=== PATIENT | female | born 1960 | race Caucasian/White ===

== ENCOUNTER → 2020-01-20 | Outpatient (CLI) | payer BC | END | disposition home or self-care (01) | LOC: LABWHC1 11:41 | PROVIDERS: ATTEND Orthopaedic Surgery | DX: Z01.812 Encounter for preprocedural laboratory examination (principal) | CPT/HCPCS: 87070 ==

== ENCOUNTER → 2020-02-10 | Outpatient (CLI) | payer BC ==
[2020-02-10 16:23] LABS: Basophils # (A) 0.2 k/uL (0-0.2); Basophils % (A) 2 %; Eosinophils # (A) 0.2 k/uL (0-0.7); Eosinophils % (A) 3 %; HCT 42.9 % (34.0-46.0); HGB 14.7 gm/dL (11.4-16.0); Lymphocytes # (A) 1.8 k/uL (1.0-4.8); Lymphocytes % (A) 26 %; MCH 29.7 pg (25.0-35.0); MCHC 34.3 g/dL (31.0-37.0); MCV 86.8 fL (80.0-100.0); Mean Platelet Volume 7.2; Monocytes # (A) 0.4 k/uL (0-1.0); Monocytes % (A) 6 %; Neutrophils # (A) 4.4 k/uL (1.3-7.7); Neutrophils % (A) 61 %; Platelet Count 273 k/uL (150-450); RBC 4.94 m/uL (3.80-5.40); WBC 7.2 k/uL (3.8-10.6)
[2020-02-10 16:32] LABS: Potassium 4.2 mmol/L (3.5-5.1)
[2020-02-10 16:39] LABS: INR 0.9 (<1.2); Prothrombin Time 9.4 sec (9.0-12.0)
== END | disposition home or self-care (01) ==
LOC: LABPAT 15:56
PROVIDERS: ATTEND Family Medicine Addiction Medicine
DX: Z01.818 Encounter for other preprocedural examination (principal)
CPT/HCPCS: 36415; 80051; 85025; 85610; 93005

== ENCOUNTER 2020-02-20 06:07 | Day surgery (SDC) | payer BC ==
[2020-02-14 10:27] VITALS: BMI 36.0
--- NOTE | 2020-02-19 09:42 | HP ---
HISTORY AND PHYSICAL REASON FOR ADMISSION: Surgery scheduled 02/20/2020 HISTORY OF PRESENT ILLNESS: Rhona Wayne is a 59-year-old patient seen with symptomatic right knee osteoarthritis. We discussed options for treatment. She elected to proceed with right total knee arthroplasty. Consent regarding the procedure was obtained. PAST MEDICAL HISTORY: Hypertension. SURGICAL HISTORY: Right knee arthroscopy/ACL reconstruction. DAILY MEDICATIONS: Adderall, lisinopril, meloxicam. ALLERGIES: DARVON AND ASPIRIN. SOCIAL HISTORY: She denies current tobacco use. PHYSICAL EVALUATION OF THE RIGHT KNEE: Range of motion is 0-130. There is a mild effusion present. Tenderness medial joint line. Crepitus medial patellofemoral compartments with range of motion. There is pain with patellofemoral compression. Ligaments stable. Hip rotation without pain. Distal neurovascular exam is intact. RADIOGRAPHS: Right knee radiographs reveal severe osteoarthritic changes. IMPRESSION: 1. Right knee osteoarthritis. 2. Hypertension. PLAN: Right total knee arthroplasty. Surgery is 02/20/2020. MMODL / IJN: [id number] /
[~2020-02-20 06:07] MED LIST: ACETAMINOPHEN TAB 500 MG TAB PO PRN; DEXAMETHASONE SOD PHOSPHATE 4 MG/ML 1 ML VIAL IV ONE; LACTATED RINGERS 1,000 ML IV SCH; LIDOCAINE 1% (10MG/ML) FOR IV START INTRADERMA PRN; MELOXICAM 7.5 MG TAB PO PRN; MIDAZOLAM 2 MG/2 ML VIAL IV PRN; ONDANSETRON 4 MG/2 ML VIAL IVP ONE; ROPIVACAINE 246.25 MG, EPINEPHrine 0.5 MG, KETOROLAC 30 MG, cloNIDine HCL/PF 80 MCG, WA... MISCELLANE PRN; TRANEXAMIC ACID 1,000 MG in SODIUM CHLORIDE 0.9% 100 ML IVPB PRN
[2020-02-20] MEDS ORDERED: MIDAZOLAM 2 MG/2 ML VIAL IV ONE (06:58)
[2020-02-20] MEDS ORDERED: SODIUM CHLORIDE 0.9% 100 ML BAG ONE (07:22)
[2020-02-20] MEDS ORDERED: NEOSTIGMINE 1 MG/ML 10 ML VIAL ONE (07:22)
[2020-02-20] MEDS ORDERED: ROCURONIUM 10 MG/ML (10 ML VIAL) IV ONE (07:22)
[2020-02-20] MEDS ORDERED: PROPOFOL 10 MG/ML 20 ML VIAL IV ONE (07:22)
[2020-02-20] MEDS ORDERED: GLYCOPYRROLATE 0.2 MG/ML 2 ML VIAL ONE (07:22)
[2020-02-20] MEDS ORDERED: fentaNYL (PF) 50 MCG/ML 2 ML AMP ONE (07:22)
[2020-02-20] MEDS ORDERED: TRANEXAMIC ACID 1,000 MG/10 ML VIAL ONE (07:22)
[2020-02-20] MEDS ORDERED: KETAMINE 10 MG/ML 20 ML VIAL ONE (07:22)
[2020-02-20] MEDS ORDERED: MIDAZOLAM 2 MG/2 ML VIAL ONE (07:22)
[2020-02-20] MEDS ORDERED: SUCCINYLCHOLINE CHLORIDE 100 MG/5 ML SYR IV ONE (07:22)
[2020-02-20] MEDS ORDERED: HYDROmorphone (PF) 1 MG/ML ONE (07:22)
[2020-02-20] MEDS ORDERED: LIDOCAINE 1% INJ 10MG/ML (20 ML MDV) ONE (07:22)
[2020-02-20] MEDS ORDERED: SCOPOLAMINE 1.5MG/72HR PATCH TRANSDERM ONE (07:23)
[2020-02-20] MEDS ORDERED: ceFAZolin 3,000 MG in SODIUM CHLORIDE 0.9% IRRIGATIO 3,000 ML IRRIGATION ONE (08:00)
[2020-02-20] MEDS ORDERED: LACTATED RINGERS 1,000 ML IV ONE ×2 (08:42→09:18)
[2020-02-20] MEDS ORDERED: ONDANSETRON 4 MG/2 ML VIAL IVP PRN (09:18)
[2020-02-20] MEDS ORDERED: HYDROmorphone 0.2 MG/1 ML SYRINGE IVP PRN (09:18)
[2020-02-20] MEDS ORDERED: HYDROmorphone 0.5 MG/0.5 ML SYRINGE IVP PRN (09:18)
[2020-02-20] MEDS ORDERED: NALOXONE 0.4 MG/ML 1 ML VIAL IV PRN (09:18)
[2020-02-20] MEDS ORDERED: HYDROmorphone 1 MG/ML 1 ML SYRINGE IVP PRN (09:18)
[2020-02-20] MEDS ORDERED: HYDROcodone/APAP 5-325MG 1 EACH TAB PO PRN ×2 (09:18)
--- NOTE | 2020-02-20 09:18 | P.OP ---
Date of Procedure: 02/20/20 Preoperative Diagnosis: Right knee osteoarthritis Postoperative Diagnosis: Right knee osteoarthritis Procedure(s) Performed: Right total knee arthroplasty Implants: 1. Depuy attune size 6 narrow right cruciate retaining cemented femur 2. Depuy attune size 6 fixed-bearing cemented tibial baseplate 3. Depuy attune size 6 fixed-bearing cruciate retaining 7 mm polyethylene tibial insert 4. Depuy attune 35 mm all polyethylene cemented patella Anesthesia: GETA, regional (Adductor canal catheter), local Surgeon: Jarrell Holder [employer]illing [employer] Professional #1: Ji Sofia Estimated Blood Loss (ml): 45 Pathology: other (Bone) Condition: stable Disposition: PACU Indications for Procedure: 59-year-old patient seen with symptomatic right knee osteoarthritis. After treatment options were discussed, she elected to proceed with total knee arthroplasty. Operative Findings: See description of procedure Description of Procedure: Patient was taken to the operative suite after having an adductor canal catheter placed by the department of anesthesia. Patient underwent a general anesthetic by the department of anesthesia. Patient was given preoperative IV intake antibiotics and TXA. A well-padded tourniquet was placed about the right lower extremity. The lower extremity was then prepped and draped in the normal sterile orthopedic fashion. The extremity was elevated, a tourniquet was insufflated to 300. A standard anterior incision was made sharply through skin. Dissection was taken down through the subcutaneous soft tissues down to the extensor mechanism. A medial arthrotomy was performed, patella was everted and knee was flexed. There was advanced osteoarthritis noted. I introduced my distal intramedullary femoral drill. I then introduced the distal femoral cut ting jig. Gallito JONES secured the cutting jig with 2 pins. I held retractors in position while Gallito JONES performed the distal femoral resection through the guide area we now removed her distal femoral cutting guide. We now placed our 4-in-1 femoral cutting block and positioned and it was secured with 2 pins by Gallito JONES while I held the block in position. The distal femoral finishing was now completed. A proximal tibial cutting guide was positioned. I held the guide in the appropriate position with both hands well Gallito JONES inserted stabilizing pins into the guide. Proximal tibial cut was made. We now placed a trial femoral component into position, along with an appropriate size tibial tray and insert. We now took the knee through range of motion and had full extension good flexion and good overall soft tissue balance noted. The patella was everted and stabilized with 2 towel clips held by Gallito JONES while I performed a flush with patellar quad tendon utilizing a fresh sawblade. We templated the patella, appropriate drill holes were made. An appropriate trial patella was positioned, knee was taken through full range of motion with the patella tracking very nicely. The trial patella was removed. Drill holes were made through the femoral component. All trial components were removed after marking off the appropriate rotation of the tibia. Retractors were now positioned along the proximal tibia. An appropriate keel punch was made with the appropriate size tibial guide by myself on Gallito JONES assisted by holding retractors. At this point appropriate size implants were chosen and opened. The joint was irrigated copiously with pulse lavage mechanical irrigation. The posterior capsule was infiltrated with local analgesic. The wound was irrigated with pulse lavage mechanical irrigation. We mixed antibiotic methylmethacrylate. We placed the knee into flexion. We placed multiple retractors assisted by Gallito JONES to expose the proximal tibia. Once the methyl methacrylate was ready, the tibial component was cemented into place removing any excess methylmethacrylate form by both myself and Gallito JONES. The femoral component was cemented into place removing the removing any excess methylmethacrylate performed by both myself and Gallito JONES. We then inserted the appropriate size polyethylene tibial insert. We made sure that it was locked into position. We took the knee into full extension, and then back in a flexion making sure we had removed any excess methylmethacrylate. The patellar component was then cemented down and secured with clamp. Excess methylmethacrylate removed. We kept the knee in full extension, patellar clamp in position until methylmethacrylate had hardened. Once it had hardened the patellar clamp was removed. The knee was taken through full range of motion. The patella tracked nicely. There was good soft tissue balancing. The tourniquet was now released. Additional hemostasis was achieved via electrocautery. A second gram of TXA was given. The wound again was irrigated with pulse lavage mechanical irrigation. The superficial soft tissues were infiltrated local analgesic. The extensor mechanism was repaired with Vicryl. We checked the repair with range of motion and it was stable. The subcutaneous soft tissues were repaired with Vicryl in layers. The skin was approximated with pernio/Dermabond. Sterile dressings were applied followed by loose web roll and Ganesh bandage. The patient was transferred to a bed, and taken to recovery in stable and satisfactory condition. Gallito JONES assisted with this complex procedure.
[2020-02-20] MEDS ORDERED: ROPIVACAINE 0.2%-NS ON-Q PUMP 1,090 MG, EMPTY PAIN BALL 1 EACH MISCELLANE PRN (09:41)
[2020-02-20] MEDS: HYDROmorphone 0.5 MG/0.5 ML SYRINGE IVP PRN ×4 (09:47→10:28)
[2020-02-20 09:54] VITALS: TEMP 97.8
--- NOTE | 2020-02-20 09:55 | P.ANPRN ---
Procedure Note - Anesthesia - Nerve Block Performed Right Adductor Canal Infusion Time Out Performed: Yes Date of Procedure: 02/17/20 Procedure Start Time: 06:58 Procedure Stop Time: 07:10 Location of Patient: PreOp Indication: Acute Post-Operative Pain, Requested by Surgeon Sedation Type: Sedate with meaningful contact maintained Preparation: Sterile Prep, Sterile Dressing Position: Supine Catheter: Indwelling Needle Types: Pajunk Needle Gauge: 21 Ultrasound used to visualize needle placement: Yes Ultrasound used to observe medication spread: Yes Blood Aspirated: No Pain Paresthesia on Injection Noted: No Resistance on Injection: Normal Image Stored and Saved: Yes Events: Uneventful and Well Tolerated (ropi .5% 20cc plus dexamethasone 4mg)
--- NOTE | 2020-02-20 10:15 | XR ---
EXAMINATION TYPE: XR knee limited RT DATE OF EXAM: 02/20/2020 CLINICAL HISTORY: Right knee pain and arthritis status post total knee replacement. TECHNIQUE: Portable AP and crosstable lateral views of the right knee are obtained immediately posto peratively. COMPARISON: Outside right knee x-ray January 20, 2020 FINDINGS: Metallic hardware from total right knee arthroplasty is seen and appears satisfactory in a lignment and position. There is evidence of recent surgery with diffuse subcutaneous gas and soft ti ssue swelling noted. Persistent posterior lateral plate distal femur from prior cruciate ligament rep air with adjacent heterotopic ossification. IMPRESSION: METALLIC HARDWARE FROM TOTAL RIGHT KNEE ARTHROPLASTY IS SATISFACTORY IN ALIGNMENT.
[2020-02-20 14:21] VITALS: BP 105/67; PULSE 89; RESP 18
== END 2020-02-20 14:36 | disposition home health service (06) ==
LOC: OR 06:07
PROVIDERS: ATTEND Orthopaedic Surgery
DX: M17.11 Unilateral primary osteoarthritis, right knee (principal); I10 Essential (primary) hypertension; F90.9 Attention-deficit hyperactivity disorder, unspecified type; Z88.8 Allergy status to other drugs, medicaments and biological substances; Z79.899 Other long term (current) drug therapy; Z98.890 Other specified postprocedural states; Z88.6 Allergy status to analgesic agent
CPT/HCPCS: 97110; 97161; 64448; 76942; 88300; 73560; 27447; C1776; C1713; J2250; J0171; J1100; J2710; J0690 ×2; J2405; J2001; J3010; J1885; J1170 ×2; J2795 ×2; J0330; J2704; J0735

== ENCOUNTER 2020-04-19 07:57 | Observation (INO) | payer BC ==
[2020-04-17 15:01] VITALS: BMI 36.8
--- NOTE | 2020-04-18 20:26 | HP ---
HISTORY AND PHYSICAL DATE OF SURGERY: 04/19/2020 Rhona Wayne is a 59-year-old patient seen with a right knee quadriceps tendon medial retinacular tear. She has a history of previous right total knee arthroplasty. I recommended repair of her quadriceps tendon tear and medial retinacular tear. I reviewed the procedure, risks, complications, benefits and recovery. She was agreeable and consent was obtained. PAST MEDICAL HISTORY: Hypertension, hyperlipidemia. PAST SURGICAL HISTORY: Right knee arthroscopy, right total knee arthroplasty. DAILY MEDICATIONS: Adderall, amitriptyline, lisinopril, meloxicam, hydrocodone. ALLERGIES: DARVON. SOCIAL HISTORY: She denies current tobacco use. PHYSICAL EVALUATION OF THE RIGHT KNEE: She has a well-healed incision. There is a defect along the medial retinaculum distal quadriceps tendon consistent with a tear. She is unable to extend her knee. She has moderate effusion. Her distal neurovascular exam is intact. RADIOGRAPHS: Radiographs of the right knee revealed a stable-appearing total knee arthroplasty with lateral subluxation of patella consistent with medial retinacular tear. IMPRESSION: 1. Right knee quadriceps tendon tear/medial retinacular tear. 2. History of right total knee arthroplasty. 3. Hypertension. PLAN: Open repair, right knee quadriceps tendon and medial retinacular tear. MMODL / IJN: [id number] /
[~2020-04-19 07:57] MED LIST changes: -ACETAMINOPHEN TAB 500 MG TAB PO PRN; -LACTATED RINGERS 1,000 ML IV SCH; -MELOXICAM 7.5 MG TAB PO PRN; -MIDAZOLAM 2 MG/2 ML VIAL IV PRN; -ROPIVACAINE 246.25 MG, EPINEPHrine 0.5 MG, KETOROLAC 30 MG, cloNIDine HCL/PF 80 MCG, WA... MISCELLANE PRN; -TRANEXAMIC ACID 1,000 MG in SODIUM CHLORIDE 0.9% 100 ML IVPB PRN
[2020-04-19] MEDS: LACTATED RINGERS 1,000 ML IV SCH ×3 (08:51→21:40)
[2020-04-19] MEDS: MIDAZOLAM 2 MG/2 ML VIAL IV PRN ×2 (09:01→12:07)
[2020-04-19 09:06] LABS: HCT 40.1 % (34.0-46.0); HGB 13.2 gm/dL (11.4-16.0); MCH 28.6 pg (25.0-35.0); MCV 86.6 fL (80.0-100.0); Mean Platelet Volume 7.2; Platelet Count 264 k/uL (150-450); RBC 4.63 m/uL (3.80-5.40); RDW 13.5 % (11.5-15.5); WBC 6.4 k/uL (3.8-10.6)
[2020-04-19 09:11] LABS: African American GFR (CKD) >90 (>60 ml/min/1.73 sqM); Anion Gap 6 mmol/L; Blood Urea Nitrogen 20 mg/dL (7-17); Calcium 9.5 mg/dL (8.4-10.2); Carbon Dioxide 29 mmol/L (22-30); Chloride 104 mmol/L (98-107); Glucose 107 mg/dL (74-99); Non-African American GFR(CKD) >90 (>60 ml/min/1.73 sqM); Potassium 4.5 mmol/L (3.5-5.1); Sodium 139 mmol/L (137-145)
[2020-04-19] MEDS ORDERED: KETOROLAC 15 MG/ML 1 ML VIAL ONE (09:38)
[2020-04-19] MEDS ORDERED: LIDOCAINE 1% INJ 10MG/ML (20 ML MDV) ONE (09:38)
[2020-04-19] MEDS ORDERED: SUCCINYLCHOLINE CHLORIDE 100 MG/5 ML SYR IV ONE (09:38)
[2020-04-19] MEDS ORDERED: PROPOFOL 10 MG/ML 20 ML VIAL IV ONE (09:38)
[2020-04-19] MEDS ORDERED: fentaNYL (PF) 50 MCG/ML 2 ML AMP ONE (09:38)
[2020-04-19] MEDS ORDERED: DEXAMETHASONE SOD PHOSPHATE 4 MG/ML 1 ML VIAL ONE (09:38)
[2020-04-19] MEDS ORDERED: MIDAZOLAM 2 MG/2 ML VIAL ONE (09:38)
[2020-04-19] MEDS ORDERED: ROPIVACAINE 5 MG/ML 30 ML VIAL ONE (09:38)
[2020-04-19] MEDS ORDERED: HYDROmorphone (PF) 1 MG/ML ONE (09:38)
[2020-04-19] MEDS ORDERED: ceFAZolin 3,000 MG in SODIUM CHLORIDE 0.9% IRRIGATIO 3,000 ML IRRIGATION ONE (10:35)
[2020-04-19] MEDS ORDERED: ONDANSETRON 4 MG/2 ML VIAL IVP PRN (11:07)
[2020-04-19] MEDS ORDERED: HYDROcodone/APAP 5-325MG 1 EACH TAB PO PRN (11:07)
[2020-04-19] MEDS ORDERED: HYDROmorphone 0.2 MG/1 ML SYRINGE IVP PRN (11:07)
[2020-04-19] MEDS ORDERED: HYDROmorphone 0.5 MG/0.5 ML SYRINGE IVP PRN (11:07)
[2020-04-19] MEDS ORDERED: hydrOXYzine pamoate 25 MG CAP PO PRN (11:07)
--- NOTE | 2020-04-19 11:07 | P.OP ---
Date of Procedure: 04/19/20 Preoperative Diagnosis: Right knee quadriceps tendon/medial retinacular tear Postoperative Diagnosis: Right knee quadriceps tendon and medial retinacular tears Procedure(s) Performed: Right knee open quadriceps tendon and medial retinacular repair Anesthesia: GETA, regional (Adductor canal block) Surgeon: Jarrell Holder Estimated Blood Loss (ml): 20 Pathology: none sent Condition: stable Disposition: PACU Indications for Procedure: 59-year-old patient injured her right knee sustaining a clinical quadriceps tendon/medial retinacular tear. I recommended open repair. I discussed the procedure, risks, complications and recovery. Patient was agreeable and consent was obtained. Operative Findings: See description of procedure Description of Procedure: Patient was taken to the operative suite after having undergone and adductor canal block of the department of anesthesia for postoperative pain management. Patient received preoperative IV antibiotics. Patient underwent a general anesthetic by the department of anesthesia. Well-padded tourniquet was placed along the proximal right thigh. The right lower extremity was prepped and draped in the normal sterile orthopedic fashion. The extremity was elevated and the tourniquet was insufflated to 300. An incision was now made over the previous cicatrix. This was aroused subcu soft tissues I encountered a hemarthrosis evacuated. Upon exposing the area we noted a complete tear of the distal quadriceps tendon and complete disruption medial retinaculum. I irrigated the wound out copiously. The components appeared stable and well positioned. I now repaired the quadriceps tendon tear and medial retinacular tears utilizing #5 Ethibond in multiple simple interrupted suture fashion. We had a good stable repair. I took the knee into about 45-50 of flexion with good stability the repair. I irrigated the wound out again copiously. The subcu soft tissues were repaired with 2-0 Vicryl. The skin is proximal skin sebas. Sterile dressings were applied. The tourniquet was released and immediate cap refill the entire extremity noted. Sterile webril and Ganesh bandage were applied. The patient was then transferred to bed and then recovery stable condition.
[2020-04-19] MEDS: fentaNYL (PF) 50 MCG/ML 2 ML AMP IVP ONE ×2 (11:08→11:18)
[2020-04-19] MEDS: MEPERIDINE 50 MG/ML SYRINGE IVP ONE ×2 (11:13→11:26)
[2020-04-19] MEDS ORDERED: LACTATED RINGERS 1,000 ML IV ONE (12:03)
[2020-04-19] MEDS: HYDROmorphone 0.5 MG/0.5 ML SYRINGE IVP PRN ×2 (12:08→12:13)
[2020-04-19] MEDS: HYDROmorphone 1 MG/ML 1 ML SYRINGE IVP PRN ×3 (13:17→22:37)
[2020-04-19] MEDS ORDERED: ACETAMINOPHEN TAB 500 MG TAB PO PRN (14:17)
[2020-04-19] MEDS: HYDROcodone/APAP 5-325MG 1 EACH TAB PO PRN ×2 (14:51→21:23)
--- NOTE | 2020-04-19 19:06 | CONS ---
CONSULTATION REASON FOR CONSULTATION: Advice regarding hypertension and multiple other medical issues, requested by Dr. Holder. HISTORY OF PRESENT ILLNESS: This 59-year-old woman with a past medical history of hypertension, history of DJD, being followed by Dr. Wolfgang Hood in the outpatient setting, was admitted after right knee open quadriceps tendon and medial retinacular repair. The patient has some pain; otherwise, there is no history of any fever, rigor or chills, no history of headache, loss of consciousness or seizures at this time. PAST MEDICAL HISTORY: Hypertension, DJD, history of environmental allergies, history ADD, ADHD, history of nicotine dependence. MEDICATIONS: Medications prior to admission included Zestril, Singulair, Mobic, hydrocodone, Adderall, Zyrtec, Elavil, Tylenol. ALLERGIES: CAMPHOR AND MENTHOL. FAMILY HISTORY: History of skin cancer, intestinal cancer. SOCIAL HISTORY: Occasional alcohol intake. REVIEW OF SYSTEMS: ENT: No diminished hearing. No diminished vision. CARDIOVASCULAR SYSTEM: No angina, palpitations. RESPIRATORY SYSTEM: No cough, hemoptysis. GI: No nausea, vomiting. : No dysuria or retention. NERVOUS SYSTEM: No numbness, weakness. ALLERGY/IMMUNOLOGY: No asthma, hayfever. MUSCULOSKELETAL: As mentioned earlier. HEMATOLOGY/ONCOLOGY: No history of anemia. ENDOCRINE: No history of diabetes, hypothyroidism. CONSTITUTIONAL: As mentioned earlier. DERMATOLOGY: Negative. RHEUMATOLOGY: Negative. PSYCHIATRY: As mentioned earlier. PHYSICAL EXAMINATION: Patient alert and oriented x3. Pulse 85, blood pressure 112/77, respiration 18, temperature 98.6, pulse ox 96% on 2 L. HEENT: Conjunctivae normal. Oral mucosa moist. NECK: No jugular venous distention. No carotid bruit. No lymph node enlargement. CARDIOVASCULAR SYSTEM: S1, S2 muffled. RESPIRATORY SYSTEM: Breath sounds diminished at the bases. No rhonchi. No crackles. ABDOMEN: Soft, non-tender. No mass palpable. LEGS: No edema. No swelling. NERVOUS SYSTEM: Higher functions as mentioned earlier. Moves all 4 limbs. No focal motor or sensory deficit. LYMPHATICS: No lymph node palpable in neck, axillae or groin. SKIN: No ulcer, rash, bleeding. JOINTS: No active deforming arthropathy. LABS: CBC within normal limits. Sodium 139, potassium 4.4. ASSESSMENT: 1. Status post right knee open quadriceps tendon and medial retinacular repair. 2. Mild hypertension. 3. Degenerative joint disease. 4. History of environmental allergies. 5. History of degenerative joint disease and right ACL surgery. 6. History of attention deficit disorder, attention deficit hyperactivity disorder. 7. History of nicotine dependence. 8. Obesity with body mass index of 39.6. 9. FULL CODE. RECOMMENDATIONS AND DISCUSSION: In this 59-year-old woman who presented after surgery, at this time I recommend to continue the current medications, continue symptomatic treatment. I will initiate the home medications. Monitor blood pressure closely. The patient is on lisinopril, which may be held if the blood pressure is low. Otherwise, DVT prophylaxis, incentive spirometry. Will follow the patient closely with you. The patient is on Lovenox. Thank you, Dr. Holder, for letting us participate in the care of this patient. MMODL / IJN: [id number] /
--- NOTE | 2020-04-19 19:34 | P.ANPRN ---
Procedure Note - Anesthesia - Nerve Block Performed Right Adductor Canal Single Time Out Performed: Yes Date of Procedure: 04/19/20 Procedure Start Time: :01 Procedure Stop Time: 09:05 Location of Patient: PreOp Indication: Acute Post-Operative Pain, Requested by Surgeon Sedation Type: Sedate with meaningful contact maintained Preparation: Sterile Prep Position: Supine Needle Types: Pajunk Needle Gauge: 21 Ultrasound used to visualize needle placement: Yes Ultrasound used to observe medication spread: Yes Blood Aspirated: No Pain Paresthesia on Injection Noted: No Resistance on Injection: Normal Image Stored and Saved: Yes Events: Uneventful and Well Tolerated (ropi .5% 20cc plus dexamethasone 4mg)
[2020-04-19] MEDS: LORATADINE 10 MG TAB PO SCH (21:21)
[2020-04-19] MEDS: AMITRIPTYLINE HCL 25 MG TAB PO SCH (21:21)
[2020-04-20] MEDS: HYDROmorphone 1 MG/ML 1 ML SYRINGE IVP PRN ×6 (02:15→21:26)
[2020-04-20] MEDS: LACTATED RINGERS 1,000 ML IV SCH ×5 (06:15→22:24)
[2020-04-20] MEDS: HYDROcodone/APAP 5-325MG 1 EACH TAB PO PRN (06:32)
[2020-04-20] MEDS: MONTELUKAST 10 MG TAB PO SCH (08:36)
[2020-04-20] MEDS: lisinopriL 5 MG TAB PO SCH (08:36)
[2020-04-20] MEDS: ENOXAPARIN 30 MG/0.3 ML SYRINGE SQ SCH (08:38)
[2020-04-20] MEDS ORDERED: HYDROcodone/APAP 7.5-325MG 1 EACH TAB PO PRN (08:50)
[2020-04-20] MEDS: PATIENT'S OWN (Dextroamphetamine/Amphetamine [Adderall] 30 MG Tablet) PO SCH (09:36)
[2020-04-20] MEDS ORDERED: LORazepam 1 MG TAB PO PRN (10:33)
[2020-04-20] MEDS: HYDROcodone/APAP 7.5-325MG 1 EACH TAB PO PRN ×2 (13:10→19:39)
[2020-04-20] MEDS ORDERED: AMPHETAMINE PO SCH (13:30)
[2020-04-20] MEDS ORDERED: DEXTROAMPHETAMINE PO SCH (13:30)
--- NOTE | 2020-04-20 15:57 | PN ---
PROGRESS NOTE DATE OF SERVICE: 04/20/2020 This 59-year-old woman who was admitted after right knee surgery is having significant pain. The patient is reporting high pain tolerance, according to her. No chest pain. No palpitations. No fever. PHYSICAL EXAMINATION: Alert and oriented x3. Pulse is 85, blood pressure 158/90, respiration 14, temperature 97.8, pulse ox 94% on room air. HEENT: Conjunctivae normal. NECK: No jugular venous distention. CARDIOVASCULAR SYSTEM: S1, S2 muffled. RESPIRATORY SYSTEM: Breath sounds diminished at the bases. No rhonchi. No crackles. ABDOMEN: Soft, non-tender. LEGS: Status post surgery on right knee. NERVOUS SYSTEM: No focal deficit. LABS: Glucose 107. ASSESSMENT: 1. Status post right knee quadriceps tendon and medial retinacular repair. 2. Mild hypertension. 3. Degenerative joint disease. 4. Severe knee pain. 5. History of environmental allergies. 6. History of degenerative joint disease and right ACL surgery. 7. History of attention deficit disorder, attention deficit hyperactivity disorder. 8. History of nicotine dependence. 9. Obesity with body mass index of 39.6. 10.FULL CODE. RECOMMENDATIONS AND DISCUSSION: I recommend to continue current medications, continue with the monitoring, symptomatic treatment. Add Ativan to the current regimen. DVT prophylaxis. The rest of the recommendations per Orthopedic Surgery. Further recommendations to follow. MMODL / IJN: [id number] /
[2020-04-20] MEDS: CALCIUM CARB-VIT D 500 MG-5 MCG TAB PO SCH (17:51)
--- NOTE | 2020-04-20 19:09 | P.PN ---
Subjective Progress Note Date: 04/20/20 Principal diagnosis: Status post open repair right knee quadriceps tendon and medial retinaculum Patient was evaluated earlier this morning, she was resting comfortably. She was utilizing the knee immobilizer brace resting in bed. Patient is having some increase in pain. She's been up ambulating with a walker. She is utilizing the IV pain medication and oral medication. She currently denies headaches, lightheadedness, chest pain or shortness of breath. Objective - Vital Signs Vital signs: Vital Signs Temp 97.9 F 04/20/20 13:20 Pulse 85 04/20/20 13:20 Resp 14 04/20/20 13:20 BP 158/98 04/20/20 13:20 Pulse Ox 95 04/20/20 02:00 Intake & Output 04/20/20 04/20/20 04/21/20 06:59 18:59 06:59 Intake Total 400 Output Total 300 Balance 100 Intake: Oral 400 Output: Urine 300 Other: Voiding Method Toilet Toilet Bedpan Bedpan # Voids 2 - Exam Right lower extremity: Postoperative bandages in good position and condition. There is minimal soft tissue swelling and ecchymosis surrounding the medial and lateral aspects of the incision. Calf is soft, no tenderness with palpation. Plantar flexion, dorsiflexion, EHL, FHL are intact. Sensory exam to light touch throughout the extremity is intact, dorsal pedis pulses 2+. - Labs CBC & Chem 7: 04/19/20 08:50 04/19/20 08:50 Assessment and Plan Assessment: Status post repair right knee medial retinaculum and quadriceps tendon Plan: Patient control, will increase oral medication to 7.5 mg/325 mg Cow[place]. Okay to utilize IV medication as needed Dressing will be changed tomorrow Continue ambulation with walker, must utilize knee immobilizer Ice and elevate often Medical management Hopeful discharge tomorrow Time with Patient: Less than 30
[2020-04-20] MEDS: AMITRIPTYLINE HCL 25 MG TAB PO SCH (19:38)
[2020-04-20] MEDS: LORATADINE 10 MG TAB PO SCH (19:39)
[2020-04-21] MEDS: HYDROcodone/APAP 7.5-325MG 1 EACH TAB PO PRN ×3 (01:39→12:53)
[2020-04-21 07:30] VITALS: BP 125/80; PULSE 73; RESP 16; TEMP 97.8
[2020-04-21] MEDS: PATIENT'S OWN (Dextroamphetamine/Amphetamine [Adderall] 30 MG Tablet) PO SCH (07:54)
[2020-04-21] MEDS: MONTELUKAST 10 MG TAB PO SCH (07:54)
[2020-04-21] MEDS: CALCIUM CARB-VIT D 500 MG-5 MCG TAB PO SCH (07:54)
[2020-04-21] MEDS: lisinopriL 5 MG TAB PO SCH (07:54)
[2020-04-21] MEDS: ENOXAPARIN 30 MG/0.3 ML SYRINGE SQ SCH (07:54)
--- NOTE | 2020-04-21 10:27 | P.PN ---
Subjective Progress Note Date: 04/21/20 Principal diagnosis: Status post open repair right knee quadriceps tendon and medial retinaculum Patient was evaluated earlier this morning, she was resting comfortably. Patient's pain is under better control today. She noticed an improvement with increased the [place] dose. She currently denies headaches, lightheadedness, chest pain or shortness of breath. Objective - Vital Signs Vital signs: Vital Signs Temp 97.8 F 04/21/20 07:29 Pulse 73 04/21/20 08:10 Resp 16 04/21/20 08:10 BP 125/80 04/21/20 07:29 Pulse Ox 95 04/21/20 07:29 Intake & Output 04/20/20 04/21/20 04/21/20 18:59 06:59 18:59 Intake Total 400 Output Total 300 Balance 100 Intake: Oral 400 Output: Urine 300 Other: Voiding Method Toilet Toilet Toilet Bedpan Bedpan Bedpan # Voids 2 # Bowel Movements 0 - Exam Right lower extremity: Postoperative bandages in good position and condition. There is minimal soft tissue swelling and ecchymosis surrounding the medial and lateral aspects of the incision. Calf is soft, no tenderness with palpation. Plantar flexion, dorsiflexion, EHL, FHL are intact. Sensory exam to light touch throughout the extremity is intact, dorsal pedis pulses 2+. - Labs CBC & Chem 7: 04/19/20 08:50 04/19/20 08:50 Assessment and Plan Assessment: Status post repair right knee medial retinaculum and quadriceps tendon Plan: Patient control, plan for discharge on [place] 7.5 mg/225 mg Dressing change today, wound care instructions discussed Continue ambulation with walker, must utilize knee immobilizer Ice and elevate often Medical management Discharge home today Time with Patient: Less than 30
--- NOTE | 2020-04-21 10:29 | P.DS ---
Providers Date of admission: 04/19/20 23:55 Expected date of discharge: 04/21/20 Attending physician: Jarrell Holder Consults: 04/19/20 11:07 Consult Physician Routine Consulting Provider: Geraldo Anderson Consult Reason/Comments: Medical management Do you want consulting provider notified?: Yes Primary care physician: Wolfgang [facility] Course: Date of admission: 04/19/2020 Date of discharge: 04/21/2020 Admission diagnosis: Status post repair right knee medial retinaculum and quadriceps tendon tear Discharge diagnosis: Same Attending physician: Dr. Holder Surgical procedures: Repair right knee medial retinaculum and quadriceps tendon Brief history: Patient is a 59-year-old female who was evaluated in the outpatient setting by Dr. Holder with regards to an injury to her right knee. He was determined that she had a quadriceps tendon and medial retinaculum tear. She was scheduled for surgery on 04/20/2020. Hospital course: Details of patient's surgery can be found in operative report. Patient tolerated the procedure well and was subsequently transported to orthopedic floor. Patient's orthopeidc and medical care was provided daily. Patient had daily laboratory tests performed for evaluation of overall blood counts. Patient had daily physical therapy to include strengthening range of motion as well as education with walker ambulation. Patient was treated with Lovenox for their postoperative DVT prophylaxis during their inpatient stay. Patient was noted to have a relatively uneventful postoperative course. Patient reported satisfactory pain control with oral pain medications by postoperative day 1. Patient showed satisfactory progress with physical therapy. Patient moved steadily through the program and had no difficulty meeting the goals by postoperative day 2. Given patient's otherwise satisfactory course and having met physical therapy goals, plan is to discharge patient home on postoperative day 2. Discharge condition/disposition: Patient will be discharged home in stable condition. Discharge medications: Instructions are given on resumption of patient's normal daily medications per primary care recommendation, in addition patient will be prescribed [place] 7.5 mg/325 mg, aspirin 81 mg. Discharge instructions: 1. Wound care and infection precautions, keep incision dry and covered while showering, no lotions, creams, moisturizers. No soaking, tubs, pools, hottubs. Do not scrub over the incision. 2. Weight-bear as tolerated with walker / cane until follow-up. 3. Ice and elevate when necessary. Do not exceed 20 minutes per hour with ice pack. 4. Utilize compression sleeve until seen at first follow up appointment. 5. Visiting nursing care. 6. Home physical therapy. 7. Pain meds and anticoagulants per prescription. 8. Pain medication has potential to cause constipation. Increase oral fluid and fiber intake. Contact primary care provider if you have not had a bowel movement within 48 hours after discharge 9. No anti-inflammatory medication until discussed at first post operative visit, this including Motrin, Aleve, Mobic, Diclofenac,. 10. Follow up in office at 2 weeks postop with Gallito Sofia PA-C 11. Follow up with your primary care doctor 7-10 days after discharge. 12. Contact [facility] with any questions, . Procedures: Repair right knee quadriceps tendon and medial retinaculum tear Patient Condition at Discharge: Good Plan - Discharge Summary Discharge Rx Participant: Yes New Discharge Prescriptions: New Aspirin [Adult Low Dose Aspirin EC] 81 mg PO BID #60 tablet. HYDROcodone/APAP 7.5-325MG [[place] 7.5] 1 - 2 each PO Q6HR PRN #42 tab PRN Reason: Pain Discontinued HYDROcodone/APAP 7.5-325MG [[place] 7.5] 1 - 2 each PO Q6HR PRN #42 tab PRN Reason: Pain No Action lisinopriL [Zestril] 5 mg PO DAILY Meloxicam [Mobic] 15 mg PO DAILY Dextroamphetamine/Amphetamine [Adderall] 15 mg PO PC-LUNCH Dextroamphetamine/Amphetamine [Adderall] 30 mg PO DAILY Amitriptyline HCl [Elavil] 25 mg PO HS Cetirizine HCl [Zyrtec] 10 mg PO HS Montelukast [Singulair] 10 mg PO DAILY Acetaminophen Tab [Tylenol Tab] 1,000 mg PO Q6HR PRN PRN Reason: Pain Discharge Medication List Acetaminophen Tab [Tylenol Tab] 1,000 mg PO Q6HR PRN 02/14/20 [History] Amitriptyline HCl [Elavil] 25 mg PO HS 02/14/20 [History] Cetirizine HCl [Zyrtec] 10 mg PO HS 02/14/20 [History] Dextroamphetamine/Amphetamine [Adderall] 15 mg PO PC-LUNCH 02/14/20 [History] Dextroamphetamine/Amphetamine [Adderall] 30 mg PO DAILY 02/14/20 [History] Meloxicam [Mobic] 15 mg PO DAILY 02/14/20 [History] Montelukast [Singulair] 10 mg PO DAILY 02/14/20 [History] lisinopriL [Zestril] 5 mg PO DAILY 02/14/20 [History] Aspirin [Adult Low Dose Aspirin EC] 81 mg PO BID #60 tablet. 04/21/20 [Rx] HYDROcodone/APAP 7.5-325MG [M[place] 7.5] 1 - 2 each PO Q6HR PRN #42 tab 04/21/20 [Rx] Follow up Appointment(s)/Referral(s): Ji Sofia PAC [[facility]] - 2 Weeks Activity/Diet/Wound Care/Special Instructions: Orthopedic discharge instructions: 1. Utilize knee immobilizer when ambulating, also utilize walker at all times 2. Ice and elevate often 3. Pain medication as needed 4. Keep incision dry and covered while showering 5. No flexion of the knee 6. Plan for follow-up at [facility] in 2 weeks Discharge Disposition: HOME SELF-CARE
--- NOTE | 2020-04-21 19:00 | PN ---
PROGRESS NOTE DATE OF SERVICE: 04/21/2020 This 59-year-old woman was admitted with knee arthroplasty, improving. No chest pain. No palpitations. No fever. PHYSICAL EXAMINATION: Alert and oriented x3. Pulse 73, blood pressure 120/80, respirations 16, temperature 97.8, pulse ox 94% on room air. HEENT: Conjunctivae normal. Oral mucosa moist. NECK: No jugular venous distention. No lymph node enlargement. CARDIOVASCULAR: S1, S2, muffled. No S3, no S4, RESPIRATORY: Diminished breath sounds at the bases. No rhonchi, no crackles. ABDOMEN: Soft, nontender. LEGS: Right leg pain and swelling. NERVOUS SYSTEM: No focal motor or sensory deficits. LABS: CBC and BMP noted. ASSESSMENT: 1. Status post right knee quadriceps tendon and medial retinacular repair. 2. Mild hypertension. 3. Degenerative joint disease. 4. Severe knee pain. 5. History of environmental allergies. 6. History of right ACL surgery. 7. History of ADD/ADHD. 8. History of nicotine dependence. 9. Obesity with body mass index of 39.6. 10.FULL CODE. RECOMMENDATIONS AND DISCUSSION: Recommend to continue current management and symptomatic treatment. Otherwise, resume the home medications. Follow closely with primary physician. The rest of the recommendations per Dr. Holder. Further recommendations to follow. MMODL / IJN: [id number] /
== END 2020-04-21 13:01 | disposition home or self-care (01) ==
LOC: OR 07:57 → 4SSUR 11:00 → OR 23:55 → 4SSUR 23:55
PROVIDERS: ADMIT Orthopaedic Surgery; ATTEND Orthopaedic Surgery
DX: S76.111A Strain of right quadriceps muscle, fascia and tendon, initial encounter (principal); Z96.651 Presence of right artificial knee joint; E78.5 Hyperlipidemia, unspecified; I10 Essential (primary) hypertension; F90.9 Attention-deficit hyperactivity disorder, unspecified type; M19.90 Unspecified osteoarthritis, unspecified site; E66.9 Obesity, unspecified; Z68.39 Body mass index [BMI] 39.0-39.9, adult; S83.013A Lateral subluxation of unspecified patella, initial encounter; Z87.891 Personal history of nicotine dependence; Z79.899 Other long term (current) drug therapy; Z80.0 Family history of malignant neoplasm of digestive organs; Z80.8 Family history of malignant neoplasm of other organs or systems
CPT/HCPCS: 97116; 97161; 64447; 76942; 80048; 85027; 27385; G0378 ×2; J2250; J1100; J2175; J0690 ×2; J2405; J2001; J3010; J1650 ×2; J1170 ×3; J2795; J1885; J0330; J2704

== ENCOUNTER → 2020-08-27 | Day surgery (SDC) | payer BC ==
[2020-08-23 11:35] VITALS: BMI 36.5
--- NOTE | 2020-08-26 09:13 | HP ---
HISTORY AND PHYSICAL REASON FOR ADMISSION: Surgery 08/27/2020 HISTORY OF PRESENT ILLNESS: Rhona Wayne is a 60-year-old patient seen with persistent right knee adhesions with history of previous total knee arthroplasty and repair of quadriceps tendon tear. We discussed options. She elected to proceed with manipulation under anesthesia right knee with steroid injection. Consent was obtained. PAST MEDICAL HISTORY: Hypertension. SURGICAL HISTORY: Right total knee arthroplasty, right knee arthroscopy with ACL reconstruction, repair right knee quadriceps tendon tear. MEDS: [place], lisinopril. ALLERGIES: DARVON AND ASPIRIN. SOCIAL HISTORY: She denies current tobacco use. PHYSICAL EXAMINATION: Evaluation of the right knee: Incision is well healed. Range of motion 0-90. Her ligaments are stable. Distal neurovascular exam is intact. RADIOGRAPHS: Radiographs of the right knee reveal stable appearing total knee arthroplasty. IMPRESSION: 1. Right knee adhesions. 2. History of right total knee arthroplasty. 3. History of right knee quadriceps tendon repair. 4. Hypertension. PLAN: Manipulation under anesthesia right knee with steroid injection. Surgery scheduled for 08/27/2020. MMODL / IJN: [id number] /
[~2020-08-27] MED LIST changes: +BUPIVACAINE (PF) 0.25% 30 ML VIAL INTRAARTIC ONE; +HYDROcodone/APAP 7.5-325MG 1 EACH TAB ONE; +HYDROcodone/APAP 7.5-325MG 1 EACH TAB PO ONE; +HYDROmorphone 0.5 MG/0.5 ML SYRINGE IVP PRN; +KETOROLAC 15 MG/ML 1 ML VIAL IVP ONE; +LACTATED RINGERS 1,000 ML IV ONE; +LACTATED RINGERS 1,000 ML IV SCH; +MIDAZOLAM 2 MG/2 ML VIAL IV PRN; +PROPOFOL 10 MG/ML 20 ML VIAL IV ONE; +Pre Op ABX Message 1 EACH MISC MISCELLANE ONE; +ceFAZolin 1,000 MG VIAL IVPB ONE; +methylPREDNISolone ACETATE 80 MG/ML 1 ML VIAL INTRAARTIC ONE
[2020-08-27 09:08] VITALS: TEMP 97.7
--- NOTE | 2020-08-27 09:58 | P.OP ---
Date of Procedure: 08/27/20 Preoperative Diagnosis: Right knee adhesions Postoperative Diagnosis: Right knee adhesions Procedure(s) Performed: Manipulation under anesthesia right knee with steroid injection Anesthesia: MAC, local Surgeon: Jarrell Holder Estimated Blood Loss (ml): 0 Pathology: none sent Condition: stable Disposition: PACU Indications for Procedure: 60-year-old patient seen with persistent right knee adhesions. I discussed options. She elected to proceed with manipulation under anesthesia right knee with steroid injection. Operative Findings: see description of procedure Description of Procedure: The patient was taken to monitored anesthesia area. She received preoperative IV antibiotics. She underwent IV sedation by the department of anesthesia. When sufficient anesthesia was noted I performed a manipulation of the right knee achieving full extension and 104 of flexion with audible tearing of the adhesions. The superior lateral aspect of the right knee was prepped and draped in normal sterile orthopedic fashion. I injected a solution of 1 mL Depo-Medrol and 3 mL quarter percent plain Marcaine intra-articular. The knee was again taken through range of motion. I applied a sterile Band-Aid. The patient was awakened having entire procedure well.
[2020-08-27 10:10] VITALS: RESP 16
[2020-08-27 10:44] VITALS: BP 158/67; PULSE 73
== END | disposition home or self-care (01) ==
LOC: OR 08:42
PROVIDERS: ATTEND Orthopaedic Surgery
DX: M23.8X1 Other internal derangements of right knee (principal); I10 Essential (primary) hypertension; Z96.651 Presence of right artificial knee joint; M19.90 Unspecified osteoarthritis, unspecified site; Z98.890 Other specified postprocedural states; Z79.891 Long term (current) use of opiate analgesic; Z79.899 Other long term (current) drug therapy; Z88.6 Allergy status to analgesic agent; Z88.5 Allergy status to narcotic agent
CPT/HCPCS: 20610; 27570; J1040; J1100; J2405; J0690; J1885; J2704; J1170